=== PATIENT | female | born 1985 | race Hispanic/Latino ===

== ENCOUNTER 2020-10-17 15:09 | Outpatient (CLI) | payer OTHER | END 2020-10-17 15:10 | disposition home or self-care (01) | LOC: CSHULT 15:09 | PROVIDERS: ATTEND Family Medicine | DX: O09.522 Supervision of elderly multigravida, second trimester (principal); Z3A.20 20 weeks gestation of pregnancy | CPT/HCPCS: 76805 ==

== ENCOUNTER 2021-02-13 08:20 | Outpatient (CLI) | payer OTHER ==
[2021-02-13 20:01] LABS: SARS-CoV-2 PCR by NAA Not Detected (NotDetected)
== END 2021-02-13 08:21 | disposition home or self-care (01) ==
LOC: CSHLAB 08:20
PROVIDERS: ATTEND Student in an Organized Health Care Education/Training Program
DX: Z20.822 Contact with and (suspected) exposure to COVID-19 (principal)
CPT/HCPCS: U0003; U0005